=== PATIENT | female | born 1985 | race Caucasian/White ===

== ENCOUNTER 2024-02-04 00:39 | Emergency (ER) | payer OTHER ==
[~2024-02-04] VITALS: Ht 160 cm; Wt 77.1 kg
[2024-02-04 00:52] VITALS: BP 134/86; PULSE 87; RESP 18; TEMP 98.6; O2SAT 96
[2024-02-04] MEDS ORDERED: NEBU-109 MC (02:49)
[2024-02-04] MEDS ORDERED: MUC600 PO (02:49)
[2024-02-04] MEDS ORDERED: PRON INH (02:49)
== END 2024-02-04 03:57 | disposition home or self-care (01) ==
LOC: MED 00:39
DX: O99.512 Diseases of the respiratory system complicating pregnancy, second trimester (principal); R05.9 Cough, unspecified; Z3A.27 27 weeks gestation of pregnancy; R03.0 Elevated blood-pressure reading, without diagnosis of hypertension; Z90.49 Acquired absence of other specified parts of digestive tract; Z88.5 Allergy status to narcotic agent
CPT/HCPCS: 99281; 99282